=== PATIENT | female | born 1965 | race Caucasian/White ===

== ENCOUNTER 2018-04-21 09:45 | Day surgery (SDC) | payer OTHER ==
[2018-03-09 13:43] VITALS: BMI 27.8
[2018-04-21] MEDS ORDERED: PROPOFOL 20 ML ONE ×2 (10:36)
[2018-04-21 12:05] VITALS: TEMP 97.5
[2018-04-21 12:32] VITALS: BP 118/65; PULSE 71
--- NOTE | 2018-04-23 14:26 | PATH ---
Surgical Pathology Report Patient Name: DIANE MATHIS I. [facility]. Rec. #: [id number] /Age/Gender: 1965 (Age: 52) / F Account: [id number] Location: [place] Pathology Taken: 04/21/2018 Received: 04/21/2018 Reported: 04/23/2018 Physicians: Danni Cullen M.D. Specimen(s) Received SIGMOID Clinical History Rule out colon cancer Postoperative diagnosis: Thickened fold Final Diagnosis SIGMOID, BIOPSY: COLONIC MUCOSA SHOWING MILD SURFACE HYPERPLASTIC CHANGE. Electronically Signed Latasha Ureña M.D. Gross Description Received in formalin, labeled "sigmoid" are 2 monteiro, irregular portions of soft tissue measuring 0.1 and 0.3 cm. in greatest dimension. The specimens are submitted in toto in one cassette. 04/22/2018 [facility]04/22/2018
== END 2018-04-21 12:34 | disposition home or self-care (01) ==
LOC: FASU-ENDO 09:45
PROVIDERS: ATTEND Internal Medicine Gastroenterology
PROC: 0DBN8ZX Excision of Sigmoid Colon, Via Natural or Artificial Opening Endoscopic, Diagnostic (ICD-10-PCS; principal; 2018-04-21 11:23)
DX: Z12.11 Encounter for screening for malignant neoplasm of colon (principal); K64.0 First degree hemorrhoids; K63.89 Other specified diseases of intestine
CPT/HCPCS: 84703; 88305-TC

== ENCOUNTER → 2022-01-21 | Day surgery (SDC) | payer OTHER | END | disposition home or self-care (01) | LOC: JRADIR 09:46 | PROVIDERS: ATTEND Internal Medicine | PROC: 0GBJ3ZX Excision of Thyroid Gland Isthmus, Percutaneous Approach, Diagnostic (ICD-10-PCS; principal; 2022-01-21) | PROC: BG44ZZZ Ultrasonography of Thyroid Gland (ICD-10-PCS; 2022-01-21) | DX: D44.0 Neoplasm of uncertain behavior of thyroid gland (principal) | CPT/HCPCS: 10005; 76942; 88173; 88305-TC ==

== ENCOUNTER → 2023-05-04 | Day surgery (SDC) | payer OTHER ==
[2023-05-04 12:13] LABS: BASO % 1.1 % (0-2.0); EOS % 2.1 % (0-4.5); HEMATOCRIT 43.6 % (32.4-45.2); HEMOGLOBIN 14.4 GM/dL (10.7-15.3); LYMPH % 34.1 % (8-40); MCH 27.5 pg (25.7-33.7); MEAN CELL VOLUME 83.4 fl (80-96); MEAN PLT VOLUME 8.8 fl (7.5-11.1); MONO % 7.7 % (3.8-10.2); PLATELET COUNT 245 10^3/uL (134-434); RBC 5.23 M/mm3 (3.60-5.2); RDW 13.3 % (11.6-15.6); WHITE BLOOD COUNT 4.8 K/mm3 (4.0-10.0)
[2023-05-04 12:15] LABS: EPI CELLS 9 /uL (0-25.1); HYALINE CASTS 0 /uL (0-3.1); URINE APPEARANCE CLEAR; URINE BACTERIA 46 /uL (0-1359); URINE BILIRUBIN NEGATIVE (NEGATIVE); URINE COLOR YELLOW; URINE GLUCOSE (UA) NEGATIVE (NEGATIVE); URINE KETONE NEGATIVE (NEGATIVE); URINE LEUK ESTERASE TRACE (NEGATIVE); URINE NITRITE NEGATIVE (NEGATIVE); URINE PROTEIN NEGATIVE (NEGATIVE); URINE RBC 105 /uL (0-23.9); URINE UROBILINOGEN 0.2 mg/dL (0.2-1.0); URINE WBC 8 /uL (0-25.8)
[2023-05-04 12:38] LABS: ALBUMIN 4.5 g/dl (3.4-5.0)
[2023-05-04 12:40] LABS: CHOLESTEROL 235 mg/dL (50-200)
[2023-05-04 12:42] LABS: LDL CHOLESTEROL (ONLY SJRH) 151 mg/dL (5-100)
[2023-05-04 12:42] LABS: BILIRUBIN,TOTAL 1.3 mg/dL (0.2-1); BLOOD UREA NITROGEN 11.8 mg/dL (7-18); TOT PROT 8.3 g/dl (6.4-8.2)
[2023-05-04 12:44] LABS: HDL CHOLESTEROL 47 mg/dL (40-60)
[2023-05-04 12:47] LABS: CREATININE 0.6 mg/dL (0.55-1.3)
== END | disposition home or self-care (01) ==
LOC: JRADIR 09:35
PROVIDERS: ATTEND Internal Medicine Endocrinology, Diabetes & Metabolism
PROC: 0G9H3ZX Drainage of Right Thyroid Gland Lobe, Percutaneous Approach, Diagnostic (ICD-10-PCS; principal; 2023-05-04)
DX: E04.1 Nontoxic single thyroid nodule (principal)
CPT/HCPCS: 10005; 36415; 76942; 80053; 80061; 81003; 82043; 82306; 82570; 82607; 82746; 83036; 84436; 84443; 84481; 85025; 86376; 86800; 88173; 88305-TC

== ENCOUNTER 2024-07-20 09:31 | Day surgery (SDC) | payer OTHER ==
[2024-07-13 12:25] VITALS: BMI 27.6
[2024-07-20 11:29] VITALS: TEMP 98
[2024-07-20 11:39] VITALS: BP 111/66; PULSE 70; RESP 19
== END 2024-07-20 11:45 | disposition home or self-care (01) ==
LOC: FASU-ENDO 09:31
PROVIDERS: ATTEND Internal Medicine Gastroenterology
PROC: 0DJD8ZZ Inspection of Lower Intestinal Tract, Via Natural or Artificial Opening Endoscopic (ICD-10-PCS; principal; 2024-07-20 11:02)
DX: Z12.11 Encounter for screening for malignant neoplasm of colon (principal); K64.1 Second degree hemorrhoids; K64.8 Other hemorrhoids; K57.30 Diverticulosis of large intestine without perforation or abscess without bleeding; Z86.010 Personal history of colon polyps